=== PATIENT | female | born 1985 | race Caucasian/White ===

== ENCOUNTER → 2023-03-05 | Outpatient (CLI) | payer BC ==
--- NOTE | 2023-03-05 12:06 | CT ---
EXAMINATION TYPE: CT chest wo/w con CT DLP: 1241 mGycm, Automated exposure control for dose reduction was used. DATE OF EXAM: 03/05/2023 11:55 AM COMPARISON: Chest regress 12/14/2014 CLINICAL INDICATION:Female, 37 years old with history of T17.908A UNSP FB IN RESP TRACTT CAUSING OTHE R INJU; PHH, Patient swallowed thumb tack x3 months. Left sided chest pain and shortness of breath. TECHNIQUE: Multiple axial images were obtained through the chest before and after the uneventful admi nistration of 100 cc of Isovue-300 intravenously . Coronal and sagittal reformats reviewed. FINDINGS: LUNGS/ PLEURA: No pleural effusion, pneumothorax, focal consolidation. No suspicious pulmonary nodule or mass. AIRWAY: There is a metallic foreign body measuring up to 8 mm in the proximal left lower lobe bronchu s (series 4, image 33). HEART: Size within normal limits. No pericardial effusion. MEDIASTINUM: No evidence of adenopathy. VASCULATURE: No aortic aneurysm. Bovine arch. MUSCULOSKELETAL: No acute osseous abnormalities SOFT TISSUES/LYMPH NODES: Unremarkable. LOWER NECK: No significant findings. UPPER ABDOMEN: Small hiatal hernia. IMPRESSION: Metallic foreign body measuring up to 8 mm in the proximal left lower lobe bronchus corresponding to reported swallowed thumb tack. No pneumothorax or surrounding hematoma. Bronchoscopy is recommended f or retrieval.
== END | disposition home or self-care (01) ==
LOC: RADCTMAIN 11:23
PROVIDERS: ATTEND Nurse Practitioner Family
DX: T17.908A Unspecified foreign body in respiratory tract, part unspecified causing other injury, initial encounter (principal)
CPT/HCPCS: 71270; Q9967

== ENCOUNTER → 2023-08-29 | Outpatient (CLI) | payer SELFPAY ==
[2023-08-29 15:10] LABS: NT-Pro-B-Type Natriuretic Pept 52 pg/mL (0-125)
[2023-08-29 15:18] LABS: ALT 11 U/L (8-44); AST 19 U/L (13-35); Albumin 4.5 g/dL (3.8-4.9); Albumin/Globulin Ratio 1.73 Ratio (1.60-3.17); Alkaline Phosphatase 70 U/L (41-126); Bilirubin, Conjugated <0.20 mg/dL (0.20-0.40); Bilirubin,Unconjugated >0 mg/dL (0.20-1.00); Blood Urea Nitrogen 17.9 mg/dL (9.0-27.0); Carbon Dioxide 24.3 mmol/L (21.6-31.8); Chloride 104 mmol/L (96-109); Chol/HDL Ratio 4.64 Ratio; Globulin 2.6 g/dL (1.6-3.3); LDL Cholesterol,Calculated 126.8 mg/dL (0.0-131.0); Potassium 4.7 mmol/L (3.5-5.5); Sodium 138 mmol/L (135-145); Total Bilirubin 0.2 mg/dL (0.3-1.2); Total Protein 7.1 g/dL (6.2-8.2)
== END | disposition home or self-care (01) ==
LOC: LABWHC1 10:30
PROVIDERS: ATTEND Internal Medicine Cardiovascular Disease
DX: Z13.220 Encounter for screening for lipoid disorders (principal); I11.0 Hypertensive heart disease with heart failure; I50.20 Unspecified systolic (congestive) heart failure; I20.89 Other forms of angina pectoris
CPT/HCPCS: 36415; 80051; 80061; 80076; 82565; 83880; 84520; 85027